=== PATIENT | female | born 1970 | race Caucasian/White ===

== ENCOUNTER → 2019-07-01 | Outpatient (CLI) | payer BC ==
--- NOTE | 2019-07-01 09:06 | Diagnostic Imaging Report ---
Exam: Pelvic ultrasound Clinical history: Urinary incontinence Findings: The bladder appears within normal limits in size and contour. The prevoid volume is 108 cc and the post void volume is 7.6 cc. Bilateral ureteral jets are noted. Impression: 1. Unremarkable bladder ultrasound with minimal post void residual. Signed by: Dr. Navneet Toussaint MD on 07/01/2019 9:04 AM
== END ==
LOC: US 07:32
PROVIDERS: ATTEND Internal Medicine Endocrinology, Diabetes & Metabolism
DX: R32 Unspecified urinary incontinence (principal)
CPT/HCPCS: 76857